=== PATIENT | male | born 1940 | race Caucasian/White ===

== ENCOUNTER 2019-06-29 16:56 | Emergency (ER) | payer MEDICARE, OTHER ==
[~2019-06-29] VITALS: Ht 160 cm; Wt 56.7 kg
[2019-06-29] MEDS ORDERED: NKM (17:03)
[2019-06-29 17:14] VITALS: BP 152/88
[2019-06-29 17:25] VITALS: BP 145/72
--- NOTE | 2019-06-29 17:25 | NUR ---
ER DISCHARGE NOTE: Pt was seen due to right lateral head laceration. No active bleeding. Patient is cleared to be discharged per PA, pt is aox4, on room air, with stable vital signs. pt/daughter was given dc instructions, pt/daughter was able to verbalize understanding, pt id band removed. and left with all his belongings.
[2019-06-29] MEDS ORDERED: Tetanus/Diptheria/Pertussis IM ONE (17:30)
--- NOTE | 2019-06-29 20:06 | Emergency Room Report ---
History of Present Illness General Chief Complaint: Laceration Source: Patient, Family Member Present Illness HPI 79-year-old male brought in by family complaining of right side scalp laceration sustained 1 hour ago. Patient was removing belt when attached keychain cut scalp. Denies LOC, headache, vision change, dizziness, weakness, numbness. Last Tdap vaccine 8 years ago. Not on blood thinner. Allergies: Coded Allergies: No Known Allergies (Unverified , 06/29/19) Patient History Past Medical History: HTN Past Surgical History: none Social History: Denies: smoking, alcohol use, drug use Nursing Documentation-[facility] Past Medical History: No Stated History Hx Hypertension: Yes Review of Systems All Other Systems: negative except mentioned in HPI Physical Exam Vital Signs Date Time Temp Pulse Resp B/P (MAP) Pulse Ox O2 Delivery O2 Flow Rate FiO2 06/29/19 16:59 97.9 54 16 163/92 (115) 95 Room Air Sp02 EP Interpretation: reviewed General Appearance: no apparent distress, alert, GCS 15, non-toxic Head: other - right parietal scalp: 5mm small laceration, no active bleeding. No hematoma. Eyes: bilateral eye normal inspection, bilateral eye PERRL ENT: hearing grossly normal, normal pharynx, no angioedema, normal voice Respiratory: chest non-tender, lungs clear, normal breath sounds, speaking full sentences Cardiovascular #1: regular rate, rhythm, no edema Neurologic: normal inspection, alert, oriented x3, responsive, video game technician III-XII nml as tested, motor strength/tone normal, normal gait Procedures Laceration/Wound Repair Laceration/Wound Repair : Consent: Verbal Wound Location: head Wound's Depth, Shape: superficial Wound Length (cm): 0 Wound Explored: clean Betadine Prep?: No Wound Debrided: None Wound Repaired With: mekhi - 1 Patient Tolerated: Well Complications: None Medical Decision Making PA Attestation This patient was seen under the direct supervision of Dr. Adamson who directed all aspects of care and diagnostic interpretation. Diagnostic Impression: Primary Impression: Scalp laceration Qualified Codes: S01.01XA - Laceration without foreign body of scalp, initial encounter ER Course ED course HPI: 79-year-old male brought in by family complaining of right side scalp laceration sustained 1 hour ago. Patient was removing belt when attached keychain cut scalp. Denies LOC, headache, vision change, dizziness, weakness, numbness. Last Tdap vaccine 8 years ago. Not on blood thinner. Patient is well-appearing. Normal neuro deficits. Imaging not indicated. Ddx: Scalp laceration vs. contusion vs. head injury HPI & PE consistent with: Scalp laceration. Head injury. Orders/ Interventions: Irrigated with NS. Applied 1 staple. Patient tolerated well. Tdap Vaccine given. Disposition: Patient stable for discharge home. Wound check in 2 days. Staple removal in 5 to 7 days. Followup with PCP in 2 days or return to ED if worsening symptoms, new symptoms or sudden change in condition. Please note that this Emergency Department Report was dictated using [employer] machine operator technology software, occasionally this can lead to erroneous entry secondary to interpretation by the dictation equipment. Last Vital Signs Date Time Temp Pulse Resp B/P (MAP) Pulse Ox O2 Delivery O2 Flow Rate FiO2 06/29/19 17:25 97.9 75 15 145/72 99 Room Air Disposition: HOME, SELF-CARE Condition: Stable Referrals: NOT CHOSEN IPA/MD,REFERRING (PCP) Patient Instructions: Laceration Care, Adult Additional Instructions: Followup PCP in 2 to 3 days for wound check, staple removal in 5-7 days. Return to ED if worsening symptoms, new symptoms or sudden change in condition. Jes Patterson Jun 29, 2019 20:06
== END 2019-06-29 17:25 | disposition home or self-care (01) ==
LOC: EMR 17:25
DX: S01.01XA Laceration without foreign body of scalp, initial encounter (principal); Z23 Encounter for immunization; I10 Essential (primary) hypertension; W45.8XXA Other foreign body or object entering through skin, initial encounter; Y92.9 Unspecified place or not applicable
CPT/HCPCS: 90471; 90715; 99283